=== PATIENT | female | born 1945 | race Caucasian/White ===

== ENCOUNTER 2021-10-09 13:51 | Outpatient (CLI) | payer MEDICARE, OTHER | END 2021-10-09 13:52 | disposition home or self-care (01) | LOC: CSHULT 13:51 | PROVIDERS: ATTEND Family Medicine | DX: R55 Syncope and collapse (principal); R42 Dizziness and giddiness | CPT/HCPCS: 93880 ==

== ENCOUNTER 2022-03-14 15:12 | Emergency (ER) | payer MEDICARE ==
[2022-03-14 15:53] LABS: #Basophils 0.1 10x3/uL (0.0-0.2); #Eosinphils 0.2 10x3/uL (0.0-0.5); #Monocytes 0.5 10x3/uL (0.0-1.1); #Neutrophils 2.7 10x3/uL (1.5-8.4); %Basophils 1.1 % (0.0-2.0); %Eosinophils 4.2 % (0.0-6.0); %Lymphocytes 27.1 % (18.0-47.0); %Monocytes 10.6 % (0.0-10.0); %Neutrophils 56.8 % (40.0-75.0); Mean Corpuscular HGB CONC 35.4 g/dL (32.0-36.0); Mean Corpuscular Hemoglobin 33.6 pg (27.0-33.0); Mean Platelet Volume 9.8 fl (7.4-10.4); Platelet Count 177 10x3/uL (150-450); RBC Distribution Width 12.4 % (11.5-14.5); Red Blood Cell (RBC) Count 3.57 10x6/uL (3.90-5.03); White Blood Cell (WBC) Count 4.7 10x3/uL (3.5-10.5)
[2022-03-14 16:08] LABS: Bilirubin Neg (Negative); Blood, Urine Negative (Negative); Clarity Clear (Clear); Glucose, Urine (Dipstick) Normal (Negative); Ketone, Urine Negative (Negative); Leukocyte 500 (Negative); Nitrite Negative (Negative); Protein, Urine (Dipstick) Negative (Neg-Trace); Urobilinogen Normal mg/dL (Less than 2); pH, Urine 6.5 (5.0-9.0)
[2022-03-14 16:16] LABS: ALT (SGPT) 11 U/L (8-55); AST (SGOT) 23 U/L (5-34); Albumin 3.8 g/dL (3.4-4.8); Alkaline Phosphatase 121 U/L (40-110); Anion Gap 12 mmol/L (10-20); BUN (Urea Nitrogen) 11 mg/dL (9.8-20.1); Bilirubin, Total 0.7 mg/dL (0.2-1.2); Calc. Creatinine Clearance 0 mL/min (70-130); Calcium 8.7 mg/dL (7.8-10.44); Carbon Dioxide 23 mmol/L (23-31); Chloride 104 mmol/L (98-107); Estimated GFR 83; Globulin 2.5 g/dL (2.4-3.5); Glucose 110 mg/dL (83-110); Magnesium 1.6 mg/dL (1.6-2.6); Potassium 3.4 mmol/L (3.5-5.1); Protein, Total 6.3 g/dL (5.8-8.1); Sodium 136 mmol/L (136-145)
[2022-03-14 16:20] LABS: Bacteria/HPF 1+ HPF (None Seen); RBC/HPF 0-3 HPF (0-3); Renal Epithelial 0-3 HPF (None Seen); Transitional Epithelial 0-3 HPF (None Seen)
[2022-03-14] MEDS ORDERED: cefTRIAXone\\ROCEPHIN 1 GM VIAL ONE (16:57)
== END 2022-03-14 19:40 | disposition home or self-care (01) ==
LOC: CSHERS 15:12
DX: N39.0 Urinary tract infection, site not specified (principal); E03.9 Hypothyroidism, unspecified; I10 Essential (primary) hypertension; Z79.899 Other long term (current) drug therapy; Z79.82 Long term (current) use of aspirin
CPT/HCPCS: 70450; 71045; 80053; 81003; 81015; 83735; 85025; 87804; 93005; 96361; 96374; J0696

== ENCOUNTER 2022-09-03 16:24 | Emergency (ER) | payer MEDICARE ==
[2022-09-03] MEDS ORDERED: methylPREDNISolone Sod Succ/PF 125 MG/2 ML VIAL ONE (16:31)
[2022-09-03] MEDS ORDERED: diphenhydrAMINE 50 MG/ML VIAL ONE (16:32)
[2022-09-03] MEDS ORDERED: Famotidine/PF 20 mg/2ml Vial ONE (16:32)
== END 2022-09-03 19:18 | disposition home or self-care (01) ==
LOC: CSHERS 16:24
DX: T88.6XXA Anaphylactic reaction due to adverse effect of correct drug or medicament properly administered, initial encounter (principal); T36.1X5A Adverse effect of cephalosporins and other beta-lactam antibiotics, initial encounter; N30.00 Acute cystitis without hematuria; I10 Essential (primary) hypertension
CPT/HCPCS: 93005; 96374; 96375; J1200; J2930; S0028